=== PATIENT | female | born 2000 | race Caucasian/White ===

== ENCOUNTER 2022-08-16 15:48 | Emergency (ER) | payer OTHER ==
[2022-08-16 15:54] VITALS: BP 114/73; PULSE 99; RESP 15; TEMP 99.6; BMI 23.9
[2022-08-16] MEDS ORDERED: AMOX TR/POT CLAV 875MG/125MG TABLETS (FP) PO ONE (16:09)
[2022-08-16] MEDS ORDERED: AMOX TR/POT CLAV 875MG/125MG TABLETS (FP) ONE (16:20)
[2022-08-16] MEDS ORDERED: DIPHTH,PERTUSS(ACELL),TET 0.5 ML DISP.SYRIN IM ONE ×2 (16:20→16:24)
== END 2022-08-16 16:59 | disposition home or self-care (01) ==
LOC: FER 15:48
PROC: 3E0234Z Introduction of Serum, Toxoid and Vaccine into Muscle, Percutaneous Approach (ICD-10-PCS; principal; 2022-08-16)
DX: S51.851A Open bite of right forearm, initial encounter (principal); S51.852A Open bite of left forearm, initial encounter; S51.051A Open bite, right elbow, initial encounter; S51.052A Open bite, left elbow, initial encounter; S50.811A Abrasion of right forearm, initial encounter; S50.812A Abrasion of left forearm, initial encounter; S50.311A Abrasion of right elbow, initial encounter; S50.312A Abrasion of left elbow, initial encounter; W55.01XA Bitten by cat, initial encounter
CPT/HCPCS: 90715; 99283-25